=== PATIENT | female | born 2000 | race Caucasian/White ===

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

== ENCOUNTER 2024-03-10 05:34 | Inpatient (IN) ==
[~2024-03-10 05:34] MED LIST changes: +Acetaminophen IV 1 GM/100ML 1,000 MG/100 ML BAG IV PRN; -Bisacodyl SUPP* 10 MG SUPP PR ONE; -Magnesium CITRATE* 300 ML BTL PO ONE; +Naloxone 0.4 mg VIAL 0.4 mg/ml 1 ml VIAL IV PUSH PRN; +Ondansetron 4 mg VIAL 2 MG/ML 2 ml VIAL IV PRN; -Sulfamethox/Trimethoprim DS 800/160* TAB PO ONE
[2024-03-10] MEDS ORDERED: ceFAZolin VIAL 2 GM in NS 0.9% 100 ml BAG 100 ML IVPB ONE (05:53)
[2024-03-10] MEDS: Lactated Ringers 1000 ml BAG 1,000 ML IV ONE (06:07)
[2024-03-10 06:25] LABS: ABS Eosinophils 0.2 10^3/uL (0.0-0.5); ABS Lymphocytes 1.9 10^3/uL (1.0-4.8); ABS Monocytes 1.2 10^3/uL (0.0-0.9); ABS Neutrophils 7.9 10^3/uL (1.5-7.6); Eosinophil % 1.8 %; Hematocrit 35.3 % (35-45); Hemoglobin 11.8 g/dL (11.5-14.3); Lymphocyte % 16.9 %; Mean Corpuscular Hemoglobin 27.4 pg (27-33); Mean Corpuscular Hgb Conc 33.4 g/dL (31-36); Mean Corpuscular Volume 82.2 fL (80-97); Mean Platelet Volume 6.9 fL (7.5-11.2); Platelet Count 383 10^3/uL (150-450); Red Cell Distribution Width 15.2 % (12-17); White Blood Count 11.3 10^3/uL (3.8-11.8)
[2024-03-10] MEDS ORDERED: Bupivacaine-MPF SPINAL 7.5 MG/ML - 2ML AMP ONE (07:04)
[2024-03-10] MEDS ORDERED: Phenylephrine IV 10 MG/ML 1 ml VIAL ONE (07:04)
[2024-03-10] MEDS ORDERED: Ondansetron 4 mg VIAL 2 MG/ML 2 ml VIAL ONE (07:04)
[2024-03-10] MEDS ORDERED: Morphine PF AMP (0.5MG/ML) 5 MG/10 ML AMP ONE (07:15)
[2024-03-10] MEDS: Sodium Citrate/Citric Acid LIQ 15 ML UDC PO ONE (07:39)
[2024-03-10] MEDS ORDERED: Naloxone 0.4 mg VIAL 0.4 mg/ml 1 ml VIAL IV PUSH PRN (08:03)
[2024-03-10] MEDS ORDERED: Ondansetron 4 mg VIAL 2 MG/ML 2 ml VIAL IV PRN (08:03)
[2024-03-10] MEDS ORDERED: Acetaminophen IV 1 GM/100ML 1,000 MG/100 ML BAG IV PRN (08:03)
[2024-03-10] MEDS ORDERED: Oxytocin 10 UNITS/ML 1 ML VIAL ONE ×3 (08:28→09:05)
[2024-03-10] MEDS ORDERED: Propofol 10 MG/ML 20 ML BTL ONE (09:00)
[2024-03-10] MEDS ORDERED: Midazolam 2 mg/2 ml VIAL 1 mg/ml 2 ml VIAL (2 mg) ONE (09:01)
[2024-03-10] MEDS ORDERED: Acetaminophen IV 1 GM/100ML 1,000 MG/100 ML BAG IV ONE (09:08)
[2024-03-10] MEDS: Oxytocin in LR 20,000 MILLI.UNIT/1,000 ML BAG IV SCH (09:15)
[2024-03-10] MEDS ORDERED: Witch Hazel PAD JAR TOPICAL PRN (09:29)
[2024-03-10] MEDS ORDERED: Dibucaine 1% OINT 28.35 GM TUBE PR PRN (09:29)
[2024-03-10] MEDS ORDERED: Glycerin ADULT 2.4 gm SUPP PR PRN (09:29)
[2024-03-10 09:59] LABS: Urine Appearance Clear; Urine Bilirubin Negative (Negative); Urine Blood Negative (Negative); Urine Color Light-Yellow; Urine Glucose Negative (Negative); Urine Ketones Negative (Negative); Urine Nitrite Negative (Negative); Urine Protein Negative (Negative); Urine Specific Gravity 1.012 (1.002-1.030); Urine Urobilinogen Negative (Negative); Urine pH 6.5 (5.0-8.0)
[2024-03-10] MEDS ORDERED: Lactated Ringers 1000 ml BAG 1,000 ML IV SCH (10:00)
[2024-03-10 10:07] LABS: Urine Bacteria Absent /HPF (Absent); Urine Red Blood Cell 1+(3-5/hpf) /HPF (0-Trace); Urine Squamous Epithelial Cell Present /HPF (Absent); Urine White Blood Cell Trace(0-5/hpf) /HPF (0-Trace)
[2024-03-10 10:10] LABS: Urine Benzodiazepine Screen None Detected (None Detect); Urine Cannabinoids Screen None Detected (None Detect); Urine Opiates Screen None Detected (None Detect)
[2024-03-10] MEDS: ceFAZolin 2 GM/50 ML BAG IV ONE (18:20)
[2024-03-11 06:53] LABS: ABS Eosinophils 0.1 10^3/uL (0.0-0.5); ABS Lymphocytes 2.7 10^3/uL (1.0-4.8); ABS Monocytes 1.4 10^3/uL (0.0-0.9); ABS Neutrophils 9.8 10^3/uL (1.5-7.6); Eosinophil % 0.6 %; Hematocrit 27.6 % (35-45); Hemoglobin 9.6 g/dL (11.5-14.3); Lymphocyte % 19.3 %; Mean Corpuscular Hemoglobin 28.6 pg (27-33); Mean Corpuscular Hgb Conc 34.7 g/dL (31-36); Mean Corpuscular Volume 82.4 fL (80-97); Mean Platelet Volume 6.7 fL (7.5-11.2); Platelet Count 303 10^3/uL (150-450); Red Blood Count 3.36 10^6/uL (3.63-4.92); Red Cell Distribution Width 15.7 % (12-17)
[2024-03-12] MEDS: Lactated Ringers 1000 ml BAG 1,000 ML IV SCH (19:26)
[2024-03-12] MEDS: Buffered Lidocaine 1% SYRIN 1 ml INTRADERM ONE (19:26)
[2024-03-13 07:59] VITALS: BP 115/77
== END 2024-03-13 14:09 | disposition home or self-care (01) | DRG 540 ==
LOC: MCHOB 05:34
PROVIDERS: ADMIT Obstetrics & Gynecology; ATTEND Obstetrics & Gynecology